=== PATIENT | female | born 1990 | race Two or more races ===

== ENCOUNTER 2019-06-17 15:15 | Emergency (ER) | payer OTHER ==
[~2019-06-17] VITALS: Ht 188 cm; Wt 66.2 kg
--- NOTE | 2019-06-17 15:50 | NUR ---
BIBRA89/PD FOR MEDICAL CLEARANCE C/O ABDOMINAL PAIN W/ N/V, STATES 12 WEEKS AND USED HEROIN LAST NIGHT, TO ER BED 2, HOOKED TO MONITOR, WARM BLAKET PROVIDED, PATIENT AOx4 , BREATHING EVEN AND UNLABORED. AWAITING MD KENT.
--- NOTE | 2019-06-17 15:57 | NUR ---
KANIKA DUGGAN AT BEDSIDE
[2019-06-17] MEDS ORDERED: METOCLOPRAMIDE HCL 10 MG TABLET ONE (16:21)
[2019-06-17] MEDS ORDERED: METOCLOPRAMIDE HCL 10 MG TABLET PO ONE (16:30)
[2019-06-17] MEDS ORDERED: ACETAMINOPHEN 325 MG TABLET ONE (16:54)
[2019-06-17] MEDS ORDERED: ACETAMINOPHEN 325 MG TABLET PO ONE (17:00)
--- NOTE | 2019-06-17 18:25 | NUR ---
US TECH PRACHI ALMAZAN AT BEDSIDE
--- NOTE | 2019-06-17 19:11 | NUR ---
Patient discharged in custody in stable condition, patient with Officer DILLON #[id number]. Written and verbal after care instructions given. Patient and [employer] verbalizes understanding of instruction.
[2019-06-17 19:15] VITALS: BP 132/81
== END 2019-06-17 19:16 ==
LOC: ER 15:15
DX: O99.321 Drug use complicating pregnancy, first trimester (principal); F11.23 Opioid dependence with withdrawal; O21.9 Vomiting of pregnancy, unspecified; Z02.89 Encounter for other administrative examinations; Z3A.10 10 weeks gestation of pregnancy
CPT/HCPCS: 36415; 76856; 84702; 93005; 99284; J8597